=== PATIENT | male | born 1950 | race Hispanic/Latino ===

== ENCOUNTER 2018-12-23 10:10 | Outpatient (CLI) | payer OTHER | END 2018-12-23 10:11 | disposition home or self-care (01) | LOC: C.PAT 10:10 | DX: N40.1 Benign prostatic hyperplasia with lower urinary tract symptoms (principal) ==

== ENCOUNTER 2018-12-27 09:51 | Observation (INO) | payer OTHER ==
[2018-12-23 10:24] VITALS: BMI 27.4
[2018-12-27] MEDS ORDERED: Ciprofloxacin 400mg/200ml D5W 400 MG/200 ML BAG IVPB ONE (11:22)
[2018-12-27] MEDS ORDERED: Midazolam 2 MG/2 ML VIAL ONE (11:30)
[2018-12-27] MEDS ORDERED: Propofol 10 mg/ml Inj (20 ML) ONE (11:31)
[2018-12-27] MEDS ORDERED: Lactated Ringer's 1,000 ML IV ONE (12:50)
[2018-12-27] MEDS ORDERED: Oxycodone/Acetaminophen 5/325 mg Tab PO PRN (13:08)
[2018-12-27] MEDS: HYDROmorphone 0.5 mg/0.5 ml ISec IVP PRN ×3 (13:16→14:23)
[2018-12-27] MEDS ORDERED: HYDROmorphone 0.5 mg/0.5 ml ISec ONE (13:45)
[2018-12-27 18:27] VITALS: RESP 20
[2018-12-28 08:00] VITALS: BP 140/69; PULSE 64; TEMP 98; O2SAT 97
[2018-12-28 13:54] LABS: BASO % 0.4 % (0.0-2.0); EOS # 0.1 K/uL (0.0-0.7); EOS % 0.6 % (0.0-4.0); HEMOGLOBIN 13.7 g/dL (12.0-18.0); LYMPH # 1.7 K/uL (1.0-4.3); LYMPH % 15.9 % (20.0-40.0); MEAN CELL VOLUME 90.8 fL (80.0-94.0); MEAN CORPUSCULAR HEMOGLOBIN 30.5 pg (27.0-31.0); MEAN CORPUSCULAR HGB CONC 33.6 g/dL (33.0-37.0); MEAN PLATELET VOLUME 9.6 fL (7.2-11.7); MONO # 0.9 K/uL (0.0-0.8); MONO % 8.1 % (0.0-10.0); NRBC % 0.1 % (0.0-2.0); RBC 4.49 Mil/uL (4.40-5.90); RED CELL DISTRIBUTION WIDTH 14.8 % (11.5-14.5); WHITE BLOOD COUNT 10.7 K/uL (4.8-10.8)
[2018-12-28 14:27] LABS: ALB/GLOB RATIO 1.2 (1.0-2.1); ALBUMIN 4.3 g/dL (3.5-5.0); ALT/SGPT 8 U/L (21-72); AST/SGOT 16 U/L (17-59); BLOOD UREA NITROGEN 14 mg/dL (9-20); CALCIUM 9.6 mg/dl (8.6-10.4); GFR NON-AFRICAN AMERICAN > 60
--- NOTE | 2018-12-28 21:59 | PN ---
DATE: 12/28/2018 The patient is postop. CBI discontinued this morning. Urine, light pinkish. Johnson catheter removed and the patient started voiding pinkish urine. Advised to drink water, and if he voids well, will be discharged by 2 o'clock. The patient was given the instruction of not to use aspirin, not to do heavy lifting, no constipation and no sexual relation. He will follow up with me after one week. Margarita Francis MD
--- NOTE | 2018-12-29 15:33 | OP ---
PROCEDURE DATE: 12/27/2018 PREOPERATIVE DIAGNOSES: Prostatic hypertrophy, outlet obstruction. POSTOPERATIVE DIAGNOSES: Prostatic hypertrophy, outlet obstruction. PROCEDURE: Cysto, transurethral resection of the prostate. BLOOD LOSS : About 3 mL. ANESTHESIA: General. DESCRIPTION OF PROCEDURE: While the patient in lithotomy position and after starting anesthesia, genitalia prepped and draped in sterile fashion. The patient placed in lithotomy position and protection for DVT done by stocking with inflation. The patient given Cipro 400 IV piggyback. Cysto done which revealed the urethra normal. Prostatic urethra revealed bilateral prostatic hypertrophy with large median lobe causing obstruction, trabeculated bladder. No bladder tumor, no stone. Dome, lateral wall within normal limits. After filling the bladder, the scope removed. Urethra dilated and resectoscope sheath inserted. The median lobe resected first to the level of the bladder neck. Both orifices localized and protected. The deep groove at 11 o'clock, another deep at 1 o'clock, all the lateral tissue and the floor resected. At the end, there was no obstruction between the veru and the bladder neck. All tissue irrigated out. All bleeders controlled after filling the bladder. The scope removed, #22 three-way Johnson inserted and irrigation was light pinkish. The patient tolerated procedure well and transferred to the recovery room in stable condition. Margarita Francis MD
== END 2018-12-28 14:10 | disposition home or self-care (01) ==
LOC: C.SDS 09:51 → C.9S 12:58 → C.6T 17:55
PROVIDERS: ADMIT Specialist; ATTEND Specialist
DX: N40.1 Benign prostatic hyperplasia with lower urinary tract symptoms (principal); N13.8 Other obstructive and reflux uropathy
CPT/HCPCS: 36415; 52601; 80053; 85025; 88305; G0378; J0744; J1170; J2405; J7120